=== PATIENT | female | born 1975 | race Caucasian/White ===

== ENCOUNTER → 2017-11-03 | Outpatient (CLI) | payer OTHER ==
[~2017-11-03] MED LIST: AMBIEN 10 MG TA10 MG PO; BACTRIM DS TAB1 EACH PO; CELEXA20 MG PO; CIPRO500 MG PO; CLONAZEPAM 0.50.5 M1 PO; CLONAZEPAM 1 MG1 M1 PO; GLIPIZIDE5 MG PO; HYDROCODONE-AP1 EAC6 PO; HYDROXYCHLOROQ200 M1 PO; KEFLEX500 MG PO; KLONOPIN1 MG PO; LEVOTHYROXIN0.075 MG PO; LEVOTHYROXIN0.112 M1 PO; LEVOTHYROXINE0.05 MG PO; LISINOPRIL5 MG PO; LOVASTAT40 PO; LOVASTATIN 20 M20 MG PO; METFORMIN HCL500 MG PO; NORCO 5-325 TA1 EACH PO; PERCOCET 10-321 EAC1 PO; PERCOCET 10-321 EACH PO; PERCOCET 7.5-31 EACH PO; PHENAZOPYRIDIN200 M2 PO; PROZAC20 MG PO; XANAX 0.5 MG0.5 MG PO; [UNRECOGNIZED DRUG - OTHER]
--- NOTE | 2017-11-05 09:00 | PAINCON ---
[address] [address] PAIN MANAGEMENT CONSULTATION Name: JEANNE WALKER Room: [facility]#: [id number] Admission: 11/03/17 Attend Phys: Ming Walker DO Discharge: Date of : 73 Report #: [id number] THIS REPORT FOR: //name// CC: Ming Cardoza DO DATE OF SERVICE: 11/03/2017 REFERRING PHYSICIAN: Emelia Cardoza DO. CHIEF COMPLAINT: Generalized joint pain, generalized body pain. HISTORY OF PRESENT ILLNESS: As you know, the patient is a 42-year-old female who complains of generalized body pain, generalized joint pain. She states pain is exacerbated with activities, cold temperatures, walking, sitting, standing, climbing stairs, lifting and bending. Improves with medications, heat and cold compresses, rest and massage. She was referred to our clinic originally to discuss treatment options for generalized joint pain, generalized body pain. She has been doing well with medications. We have stabilized her on the dose of oxycodone along with the use of clonazepam. She returns today in followup visit for prescriptions of the medication. ALLERGIES: PENICILLIN AND MORPHINE. CURRENT MEDICATIONS: Alprazolam, clonazepam, fluoxetine, hydroxychloroquine, levothyroxine, lisinopril, lovastatin, metformin, oxycodone. SOCIAL HISTORY: The patient describes herself as a reformed smoker. Denies IV or illicit drug use. Denies any chronic alcohol use. She is unaccompanied today. IMAGING: No new imaging available. PHYSICAL EXAMINATION: VITAL SIGNS: Blood pressure 109/70, pulse 77, respiratory rate 16, unlabored. The patient is 96% on room air, current temperature 97.5 degrees Fahrenheit, height 5 feet 4 inches tall, weight 222.6 pounds, BMI calculated 38.1. GENERAL: Well-developed, well-nourished, well-hydrated 42-year-old female, appears older than stated age, placing current pain score 4/10. HEENT: Normocephalic, atraumatic. Pupils equal, round, reactive to light. EXTREMITIES: Show no clubbing, no cyanosis, no edema. MUSCULOSKELETAL: Lower extremity strength is symmetrical 5/5, intact to light touch from L1 through S2 dermatomes. Weightbearing and standing from a seated position exacerbates hip pain, knee pain, ankle pain and low back pain. Lumbar provocation testing is met [place] [address] PAIN MANAGEMENT CONSULTATION Name: JEANNE WALKER Room: [facility]#: [id number] Admission: 11/03/17 Attend Phys: Ming Walker DO Discharge: Date of : 73 Report #: [id number] ASSESSMENT: 1. Generalized body pain. 2. Myofascial pain. 3. Opioid dependency. 4. Chronic intractable pain. PLAN: 1. The patient returns today in followup visit for generalized body pain, generalized joint pain. At this point, the patient is being described as having a seronegative rheumatologic issue, though there has been no definitive discussion of treatment. She is on Plaquenil for her symptoms, but this does not appear to have improved her pain. She continues to utilize oxycodone on a consistent basis up to 4 times a day. We have stabilized the patient on medication. We will be returning her care to her PCP for continuation of this therapy. The patient does not need to continue to follow with the pain physician for opioid therapy as she has stabilized on the medication. There have been no changes in nearly 2 years. We will be discharging her care back to her PCP for continuation of this treatment. No further changes are necessary. We recommend she follow not only with her PCP, but Rheumatology to determine if source of her generalized body pain and generalized joint pain can be elucidated. 2. The patient was provided prescription of oxycodone 10/325, one tab p.o. q. 6 hours p.r.n. pain. I have given the patient #120, releases of today, 4 weeks from today, 8 weeks from today, 3 months' worth of medication. This will give the patient more than enough time to return to her PCP and be evaluated and continue the therapy. 3. The patient was provided prescription of clonazepam 1 mg dose 1 tab p.o. at bedtime p.r.n. anxiety and muscle spasming. I have given the patient #30 tablets, 2 refills, 3 months' worth of medication. The patient will be able to return to see her PCP for continuation of this therapy if they deem it necessary. 4. We wish to thank, Dr. Cardoza, for the opportunity to follow the patient's case for the last couple of years. I am pleased to say that she is now stabilized on medications. She is doing well from a medication standpoint and we recommend that she continue this therapy for the foreseeable future. She does not need to return to our services for further evaluation and she is stabilized on the medications appropriate for her generalized pain and generalized joint symptomology. <ELECTRONICALLY SIGNED> By: Ming Walker DO 11/05/17 0900 [id number] Walker DO /nt
== END ==
LOC: M.PC 00:56
DX: G89.29 Other chronic pain (principal); M79.1 Myalgia; F11.90 Opioid use, unspecified, uncomplicated; M25.50 Pain in unspecified joint; Z87.891 Personal history of nicotine dependence

== ENCOUNTER 2019-03-28 10:32 | Observation (INO) | payer OTHER ==
[~2019-03-28] VITALS: Ht 162.6 cm; Wt 89.9 kg
[~2019-03-28 10:32] MED LIST changes: -LEVOTHYROXIN0.112 M1 PO; +SYNTHROID200 MCG PO
[2019-03-28 10:42] VITALS: BP 124/88
[2019-03-28 11:05] LABS: ABSOLUTE BASOPHILS 0.1 thou/uL (0.0-0.2); ABSOLUTE EOSINOPHILS 0.5 thou/uL (0.0-0.7); ABSOLUTE LYMPHOCYTES 3.7 thou/uL (0.8-5.3); ABSOLUTE MONOCYTES 0.4 thou/uL (0.0-1.2); EOSINOPHILS 6.4 %; HEMATOCRIT 41.6 % (37.0-47.0); HEMOGLOBIN 14.1 gm/dL (12.0-15.0); LYMPHOCYTES 48.5 %; MCH 28.5 pg (26.0-34.0); MCV 83.8 fL (80.0-100.0); MONOCYTES 4.9 %; MPV 8.3 fl. (7.2-11.1); NUCLEATED RBCS 0 /100WBC; PLATELET COUNT* 257 thou/uL (150-400); POLYS 39.2 %; RBC 4.96 mil/uL (4.20-5.00); RDW-CV 13.4 % (10.5-14.5); WBC 7.5 thou/uL (4.0-11.0)
[2019-03-28 11:25] LABS: ANION GAP 6 mmol/L (7-16); BUN 9 mg/dL (7-18); CALCIUM 9.4 mg/dL (8.5-10.1); CHLORIDE 99 mmol/L (98-107); CO2 32 mmol/L (21-32); CREATININE 0.8 mg/dL (0.6-1.3); GLUCOSE 245 mg/dL (70-99); POTASSIUM 4.2 mmol/L (3.5-5.1); SODIUM 137 mmol/L (136-145)
[2019-03-28 11:34] LABS: ALBUMIN 3.8 g/dL (3.4-5.0); ALKALINE PHOSPHATASE 137 U/L (46-116); SGOT 53 U/L (15-37); SGPT 71 U/L (30-65); TOTAL BILIRUBIN 0.9 mg/dL (<0.1-1.0); TOTAL PROTEIN 8.1 g/dL (6.4-8.2); TROPONIN-I LEVEL <0.06 ng/mL (<0.06)
[2019-03-28 14:15] VITALS: BP 141/87
[2019-03-28 14:21] VITALS: BP 114/68
[2019-03-28] MEDS ORDERED: PERCOCET 10-321 EACH PO (14:47)
[2019-03-28] MEDS ORDERED: JANUVIA100 MG PO (14:48)
[2019-03-28] MEDS ORDERED: HYDROXYCHLOROQ200 M1 PO (14:48)
[2019-03-28] MEDS ORDERED: XANAX 0.5 MG0.5 MG PO (14:49)
[2019-03-28] MEDS ORDERED: CLONAZEPAM 1 MG1 M1 PO (14:50)
--- NOTE | 2019-03-28 17:30 | NUR ---
PATIENT ARRIVED FROM ER THIS AFTERNOON. PATIENT SETTLED TO ROOM. HISTORY, ASSESSMENT AND VITALS COMPLETED AND DOCUMENTED. PATIENT HAS COMPLAINTS OF CHEST PAIN, VITALS AND EKG STABLE, FENTANYL GIVEN IN ER WITH ADEQUATE RELIEF. PATIENT HAS GOOD APPETITE. PATIENT DENIES ANY NEEDS AT THIS TIME. CALL LIGHT WITHIN REACH. WILL CONTINUE TO MONITOR.
[2019-03-28 20:15] VITALS: BP 136/85
[2019-03-29] VITALS: BP 96/69
[2019-03-29 04:30] VITALS: BP 125/79
--- NOTE | 2019-03-29 05:06 | NUR ---
PT HAS SLEPT FAIRLY WELL OVERNIGHT. RECEIVING PO PAIN MED FOR CO STERNAL CHEST PAIN RANGING FROM 3-5/10 ON SCALE. PT STATES PAIN IMPROVES SOME AFTER PAIN MEDS. LFA SL. HS ACCUCHECK 276, INSULIN GIVEN ORDERED WITH SNACK. TELE SR. UP AD LAY IN ROOM VOIDING WITHOUT DIFFICULTY. AOX4, PLEASANT. ABLE TO USE CALL LITE AND MAKE NEEDS KNOWN. CARDIOLOGY TO CONSULT TODAY. AM LABS DRAWN. ROOM AIR SAT 98%.
[2019-03-29 05:26] LABS: CHOLESTEROL 204 mg/dL (<200); HDL CHOLESTEROL 32 mg/dL (>40); LDL CHOLESTEROL 128 mg/dL (<100); TC:HDL 6.4 Ratio (Not establshd); TRIGLYCERIDE 222 mg/dL (<150); VLDL 44 mg/dL (<40)
[2019-03-29 05:29] LABS: SERUM ASSESSMENT Slight Lipemia
--- NOTE | 2019-03-29 07:25 | NUR ---
CHANGE OF SHIFT, BEDSIDE REPORT GIVEN PATIENT SEEN AT BEDSIDE, IN BED ASLEEP ASSUMED PATIENT CARE
[2019-03-29 08:00] VITALS: BP 142/89
[2019-03-29] MEDS ORDERED: LOVASTAT40 PO (10:43)
[2019-03-29] MEDS ORDERED: LO-DOSE ASPIRIN81 M1 PO (10:43)
[2019-03-29] MEDS ORDERED: METFORMIN HCL500 MG PO (10:43)
[2019-03-29 11:00] VITALS: BP 127/78
--- NOTE | 2019-03-29 13:52 | 2DMMODE ---
[place] [address] 2 D/M-MODE ECHOCARDIOGRAM Name: DENISEJEANNE Room: [address] IN [facility]#: [id number] Admission: 03/28/19 Attend Phys: Ming Shukla, Discharge: Date of : 73 Date of Service: 03/29/19 1352 Report #: [id number] THIS REPORT FOR: //name// APPROVED REPORT Study performed: 03/29/2019 09:40:10 EXAM: Comprehensive 2D, Doppler, and color-flow Echocardiogram Patient Location: In-Patient Room #: 213 Status: routine BSA: 1.95 HR: 68 bpm BP: 142/89 mmHg Rhythm: NSR Other Information Study Quality: Good Indications Chest Pain 2D Dimensions IVSd: 10.39 (7-11mm) LVOT Diam: 20.98 (18-24mm) LVDd: 47.27 mm PWd: 10.15 (7-11mm) Ascending Ao: 28.78 (22-36mm) LVDs: 30.90 (25-40mm) Aortic Root: 32.06 mm Volumes Left Atrial Volume (Systole) LA ESV Index: 24.90 mL/m2 Aortic Valve AoV Peak Charlie.: 1.27 m/s AO Peak Gr.: 6.42 mmHg LVOT Max P.96 mmHg AO Mean Gr.: 3.34 mmHg LVOT Mean P.68 mmHg LVOT Max V: 0.99 m/s AO V2 VTI: 27.16 cm LVOT Mean V: 0.58 m/s ELIAS (VTI): 2.63 cm2 LVOT V1 VTI: 20.68 cm Mitral Valve E/A Ratio: 1.16 MV Decel. Time: 211.34 ms MV E Max Charlie.: 0.65 m/[place] [address] 2 D/M-MODE ECHOCARDIOGRAM Name: JEANNE WALKER Room: [address] IN ..#: [id number] Admission: 03/28/19 Attend Phys: Ming Shukla, Discharge: Date of : 73 Date of Service: 03/29/19 1352 Report #: [id number] PHT: 61.29 ms MVA (PHT): 3.59 cm2 TDI E/Lateral E': 5.91 E/Medial E': 5.91 Medial E' Charlie.: 0.11 m/s Lateral E' Charlie.: 0.11 m/s Pulmonary Valve PV Peak Charlie.: 0.75 m/s PV Peak Gr.: 2.22 mmHg Tricuspid Valve RAP Estimate: 5.00 mmHg TR Peak Gr.: 12.00 mmHg RVSP: 17.00 mmHg PA Pressure: 17.00 mmHg Left Ventricle The left ventricle is normal size. There is normal LV segmental wall motion. There is normal left ventricular wall thickness. Left ventricular systolic function is normal. The left ventricular ejection fraction is within the normal range. LVEF is 55-60%. The left ventricular diastolic function is normal. Right Ventricle The right ventricle is normal size. The right ventricular systolic function is normal. Atria The left atrium size is normal. The right atrium size is normal. Aortic Valve The aortic valve is normal in structure. No aortic regurgitation is present. There is no aortic valvular stenosis. Mitral Valve The mitral valve is normal in structure. Trace mitral regurgitation. No evidence of mitral valve stenosis. Tricuspid Valve The tricuspid valve is normal in structure. Trace tricuspid regurgitation. No pulmonary hypertension. Pulmonic Valve The pulmonary valve is normal in structure. There is no pulmonic [place] [address] 2 D/M-MODE ECHOCARDIOGRAM Name: JEANNE WALKER Any Room: [address]#: [id number] Admission: 03/28/19 Attend Phys: Ming Shukla, Discharge: Date of : 73 Date of Service: 03/29/19 1352 Report #: [id number] Great Vessels The aortic root is normal in size. IVC is normal in size and collapses >50% with inspiration. Pericardium There is no pericardial effusion. <Conclusion> The left ventricle is normal size. There is normal left ventricular wall thickness. Left ventricular systolic function is normal. The left ventricular ejection fraction is within the normal range. LVEF is 55-60%. The left ventricular diastolic function is normal. The right ventricle is normal size. The left atrium size is normal. The aortic valve is normal in structure. The mitral valve is normal in structure. Trace mitral regurgitation. The tricuspid valve is normal in structure. IVC is normal in size and collapses >50% with inspiration. There is no pericardial effusion. There is normal LV segmental wall motion. <ELECTRONICALLY SIGNED> By: Johny Law MD, FACC 03/29/19 1352 135 135 Johny Law MD, FACC /INF
--- NOTE | 2019-03-29 14:57 | EKG ---
[place] [address] ELECTROCARDIOGRAM REPORT Name: JEANNE WALKER Room: [address] ADM IN .R.#: [id number] Admission: 03/28/19 Attend Phys: Ming Shukla MD Discharge: Date of : 73 Report #: [id number] THIS REPORT FOR: //name// [facility] ED Test Date: 2019-03-28 Test Time: 10:37:05 Pat Name: JEANNE WALKER Department: Room: [facility] Gender: F Resin Coater: MARGA : 1975 Requested By: Tian Gutierrez Order Number: [id number] MD: Johny Law Measurements Intervals [place] Rate: 80 P: 21 CA: 135 QRS: 4 QRSD: 104 T: 29 QT: 402 QTc: 464 Interpretive Statements Sinus rhythm RSR' in V1 or V2, right VCD or RVH Borderline T abnormalities, anterior leads Compared to ECG 12/08/2013 13:08:31 RSR' in V1 or V2 now present T-wave abnormality now present Incomplete right bundle-branch block no longer present Electronically Signed On 03-29-2019 14:56:52 CDT by Johny Law [email or web address] <ELECTRONICALLY SIGNED> By: Johny Law MD, FACC 03/29/19 1456 1037 1037 Johny Law MD, FAC /EPI
[2019-03-29 15:00] VITALS: BP 137/81
[2019-03-29 15:05] LABS: HEPATITIS B SURFACE AG Negative (Negative)
--- NOTE | 2019-03-29 16:22 | CARDNUC ---
[place] [address] CARDIAC NUCLEAR IMAGING REPORT Name: JEANNE WALKER Room: [address] IN [facility]#: [id number] Admission: 03/28/19 Attend Phys: Ming Shukla, Discharge: Date of : 73 Date of Service: 03/29/19 1622 Report #: [id number] THIS REPORT FOR: //name// APPROVED REPORT Imaging Protocol: Stress Tc-99m/Rest Tc-99m 2 days Study performed: 03/29/2019 09:18:00 Indication: Chest pain Room #: 213 Stress Nurse: KENNEY Ferrer Tech:RICH Spence BMI: 0 Pharmacologic Stress Pharmacologic stress test was performed by injecting Regadenoson 0.4 mg IV push over 10-15 seconds immediately followed by the intravenous injection of 35.0 mCi of Tc-99m Sestamibi. Time of stress injection: 1440 Date: 03/29/2019 Administration Route: IV Administration Site: Left AC Gated Stress SPECT was performed 40 minutes after stress injection. The images were gated to evaluate regional wall motion and calculate left ventricular ejection fraction. Prone imaging was performed. Stress Test Details Stress Test: Pharmacologic stress testing performed using 0.4 mg of regadenoson per 5 mL given IV over 10 seconds. HR Max Heart Rate (APMHR): 176 bpm Resting HR: 75 bpm Target HR (85% APMHR): 149 bpm Max HR Achieved: 128 bpm % of APMHR: 72 Recovery HR: 87 bpm BP Resting BP: 102/73 mmHg Max BP: 128/82 mmHg Recovery BP: 130/85 mmHg BP response to stress: Normal blood [place] [address] CARDIAC NUCLEAR IMAGING REPORT Name: DENISEJEANNE Any Room: [address]#: [id number] Admission: 03/28/19 Attend Phys: Ming Shukla, Discharge: Date of : 73 Date of Service: 03/29/19 1622 Report #: [id number] ECG Resting ECG: nsr Stress ECG: nsr ST Change: none Arrhythmia: none Recovery ECG: nsr Recovery ST Change: none Recovery Arrhythmia: none Clinical Stress Symptoms: none Stress ECG Conclusion negative ecg Study Quality Study: Good Artifact: No artifact Perfusion Stress only SPECT images are normal in supine and prone positions, without any perfusion defects. Normal perfusion on both the stress and rest images. Images were reviewed using [employer]. Wall Motion normal all segments Nuclear Conclusion ECG Findings: negative for ischemia Clinical Findings: negative for ischemia Nuclear Findings: negative for ischemia Exercise Capacity: not assessed Left Ventricular Function: normal Risk Study: low Negative stress only perfusion stress test for ischemia or infarct <Conclusion> negative ecg <ELECTRONICALLY SIGNED> By: Zechariah Andrade MD, FACC 03/29/191621 21 21 Zechariah Andrade MD, FACC /INF
[2019-03-29 17:54] VITALS: BP 137/81
[2019-03-29] MEDS ORDERED: HYDROXYCHLOROQ200 M1 PO (18:08)
--- NOTE | 2019-03-29 18:20 | NUR ---
DISCHARGE TO HOME ALL DC INFORMATION GIVEN, ACKNOWLEDGED, SIGNED COPIES GIVEN IV AND HEART MONITOR REMOVED PERSONAL BELONGINGS RETURNED ESCORTED OUT AMBULATORY TO WAITING CAR
[2019-03-31 13:09] LABS: ANA INTERPRETATION Negative (Negative)
== END 2019-03-29 18:21 | disposition home or self-care (01) ==
LOC: M.ERS 10:32 → M.2W 12:58 → M.TBA-ER 12:58 → M.2W 14:18
PROVIDERS: Nurse Practitioner Family; ADMIT Internal Medicine
DX: R07.89 Other chest pain (principal); E11.9 Type 2 diabetes mellitus without complications; E66.9 Obesity, unspecified; R74.0 Nonspecific elevation of levels of transaminase and lactic acid dehydrogenase [LDH]; E03.9 Hypothyroidism, unspecified; M06.9 Rheumatoid arthritis, unspecified; F41.1 Generalized anxiety disorder; I10 Essential (primary) hypertension; E78.5 Hyperlipidemia, unspecified; G89.29 Other chronic pain; F11.20 Opioid dependence, uncomplicated; Z87.891 Personal history of nicotine dependence; Z88.0 Allergy status to penicillin; Z88.5 Allergy status to narcotic agent; Z88.8 Allergy status to other drugs, medicaments and biological substances; Z79.899 Other long term (current) drug therapy; Z90.89 Acquired absence of other organs; Z90.710 Acquired absence of both cervix and uterus

== ENCOUNTER 2019-07-14 17:23 | Emergency (ER) | payer OTHER ==
[~2019-07-14] VITALS: Ht 162.6 cm; Wt 88.0 kg
[~2019-07-14 17:23] MED LIST changes: +JANUVIA100 MG PO; +LO-DOSE ASPIRIN81 M1 PO
[2019-07-14] MEDS ORDERED: METFORMIN HCL500 M3 PO (17:36)
[2019-07-14] MEDS ORDERED: TRULICITY1.5 MG/0.5 SUBQ (17:37)
[2019-07-14 18:00] LABS: URINE BILIRUBIN NEGATIVE (Negative); URINE BLOOD NEGATIVE (Negative); URINE CLARITY CLEAR; URINE COLOR YELLOW; URINE GLUCOSE-RANDOM NEGATIVE (Negative); URINE KETONES NEGATIVE (Negative); URINE LEUKOCYTES-REFLEX NEGATIVE (Negative); URINE NITRITE-REFLEX NEGATIVE (Negative); URINE PROTEIN 3+ (Negative); URINE SPECIFIC GRAVITY 1.025 (1.005-1.030); URINE UROBILINOGEN 0.2 E.U./dl (0.2-1.0)
[2019-07-14 18:09] LABS: MUCUS None Seen strn/LPF (None Seen); SQUAMOUS >10 Many /LPF (0-3)
[2019-07-14 18:10] LABS: BACTERIA-REFLEX 1-9 Few /HPF (None Seen); CRYSTALS None Seen /LPF (None Seen); HYALINE CASTS 0-3 Few /LPF (None Seen); URINE WBC-REFLEX 0-5 Rare /HPF (0-5)
[2019-07-14 18:11] LABS: URINE RBC None Seen /HPF (0-2)
[2019-07-14 18:12] LABS: ABSOLUTE BASOPHILS 0.1 thou/uL (0.0-0.2); ABSOLUTE EOSINOPHILS 0.5 thou/uL (0.0-0.7); ABSOLUTE MONOCYTES 0.5 thou/uL (0.0-1.2); ABSOLUTE NEUTROPHILS 6.6 thou/uL (1.6-8.1); BASOPHILS 0.9 %; EOSINOPHILS 4.1 %; HEMATOCRIT 44.6 % (37.0-47.0); HEMOGLOBIN 15.5 gm/dL (12.0-15.0); LYMPHOCYTES 39.1 %; MCHC 34.7 g/dL (28.0-37.0); MCV 83.6 fL (80.0-100.0); MONOCYTES 4.2 %; MPV 8.3 fl. (7.2-11.1); NUCLEATED RBCS 0 /100WBC; PLATELET COUNT* 333 thou/uL (150-400); POLYS 51.7 %; RBC 5.34 mil/uL (4.20-5.00); RDW-CV 13.4 % (10.5-14.5); WBC 12.8 thou/uL (4.0-11.0)
[2019-07-14 19:14] LABS: CALCIUM 9.1 mg/dL (8.5-10.1); CREATININE 0.7 mg/dL (0.6-1.3); POTASSIUM 3.5 mmol/L (3.5-5.1)
[2019-07-14 19:19] LABS: ALBUMIN 3.9 g/dL (3.4-5.0); TOTAL BILIRUBIN 1.1 mg/dL (<0.1-1.0); TOTAL PROTEIN 7.9 g/dL (6.4-8.2)
[2019-07-14] MEDS ORDERED: OMEPRAZOLE40 MG PO (20:28)
[2019-07-14 20:54] VITALS: BP 120/84
--- NOTE | 2019-07-15 13:22 | EKG ---
[place] [address] ELECTROCARDIOGRAM REPORT Name: JEANNE WALKER Room: [facility]#: [id number] Admission: 07/14/19 Attend Phys: Discharge: 07/14/19 Date of : 73 Report #: [id number] THIS REPORT FOR: //name// [facility] ED Test Date: 2019-07-14 Test Time: 17:54:51 Pat Name: JEANNE WALKER Department: Room: Gender: F Braider Tender: : 1975 Requested By: Calista Iniguez Order Number: [id number] MD: Jerry Shannon Measurements Intervals [place] Rate: 68 P: 22 MO: 136 QRS: 11 QRSD: 109 T: 19 QT: 413 QTc: 440 Interpretive Statements Sinus rhythm Incomplete right bundle-branch block Borderline T abnormalities, anterior leads Compared to ECG 03/28/2019 10:37:05 No significant changes Electronically Signed On 07-15-2019 13:22:37 CDT by Jerry Shannon [email or web address] <ELECTRONICALLY SIGNED> By: Jerry Shannon MD, [facility] 07/15/19 1322 1754 175 Jerry Shannon MD, FACC /EPI
== END 2019-07-14 20:54 | disposition home or self-care (01) ==
LOC: M.ERS 17:23
PROVIDERS: Nurse Practitioner Family
DX: K29.70 Gastritis, unspecified, without bleeding (principal); M06.9 Rheumatoid arthritis, unspecified; E03.9 Hypothyroidism, unspecified; F32.9 Major depressive disorder, single episode, unspecified; F41.9 Anxiety disorder, unspecified; G89.29 Other chronic pain; E11.9 Type 2 diabetes mellitus without complications; Z90.89 Acquired absence of other organs; Z90.49 Acquired absence of other specified parts of digestive tract; Z98.890 Other specified postprocedural states; Z88.0 Allergy status to penicillin; Z88.5 Allergy status to narcotic agent; Z88.8 Allergy status to other drugs, medicaments and biological substances